=== PATIENT | female | born 1955 | race Caucasian/White ===

== ENCOUNTER 2023-01-14 00:28 | Observation (INO) ==
[2023-01-14] MEDS ORDERED: SODIUM CHLORIDE 0.9% 1000ML 1,000 ML IV ONE (00:30)
--- NOTE | 2023-01-14 00:47 | Emergency Department Note ---
History of Present Illness General Chief complaint: Hyperglycemia Stated complaint: HYPERGLYCEMIA Time Seen by Provider: 01/14/23 00:30 History of Present Illness 67-year-old female presents emergency department via EMS with reported high blood sugar. Patient states that her Accu-Chek read high today she did take 50 units of insulin and 50 units of insulin at 9 PM this evening. Patient denies vomiting states some nausea. Patient denies shortness of breath denies abdominal pain. Patient has no recent infections. Patient states general malaise. There are no other mitigating or alleviating factors Home Medications Medication Instructions Recorded Confirmed Type allopurinol 300 mg tablet 300 mg PO QAM 07/24/18 01/14/23 History fluticasone propionate 50 1 spray intranasal DAILY PRN 07/24/18 01/14/23 History mcg/actuation nasal Congestion spray,suspension (Flonase Allergy Relief) insulin human U-100 NPH-regulr See Rx Instructions .Route .COMPLEX 07/24/18 01/14/23 History 70-30 mix 100 unit/mL subcutaneous susp (Humulin 70/30 U-100 Insulin) levothyroxine 175 mcg tablet 175 mcg PO DAILYBB 07/24/18 01/14/23 History lorazepam 0.5 mg tablet 0.5 mg PO TID PRN Anxiety 07/24/18 01/14/23 History nystatin-triamcinolone 100,000 1 applic topical BID 07/24/18 01/14/23 History unit/g-0.1 % topical cream torsemide 100 mg tablet 100 mg PO 3XWK 07/24/18 01/14/23 History Keto Plus Bhb Salts 2 tab PO QAM 01/14/23 01/14/23 History ascorbic acid (vitamin C) 500 mg 500 mg PO QAM 01/14/23 01/14/23 History tablet clotrimazole 1 % topical cream 1 applic topical BID 01/14/23 01/14/23 History docusate sodium 100 mg capsule 100 mg PO BID 01/14/23 01/14/23 History dulaglutide 0.75 mg/0.5 mL 0.75 mg subcut WK 01/14/23 01/14/23 History subcutaneous pen injector (Trulicity) ferrous sulfate 325 mg (65 mg 325 mg PO AMHS 01/14/23 01/14/23 History iron) tablet hydrocodone 5 mg-acetaminophen 325 1 tab PO Q8 PRN Moderate Pain 01/14/23 01/14/23 History mg tablet (Scale Score 5-6) losartan 50 mg tablet 50 mg PO QAM 01/14/23 01/14/23 History pantoprazole 40 mg tablet,delayed 40 mg PO DAILYBB 01/14/23 01/14/23 History release pioglitazone 30 mg tablet 30 mg PO QAM 01/14/23 01/14/23 History simvastatin 80 mg tablet 80 mg PO QAM 01/14/23 01/14/23 History venlafaxine 150 mg 150 mg PO QAM 01/14/23 01/14/23 History capsule,extended release 24 hr Allergies Allergy/AdvReac Type Severity Reaction Status Date / Time adhesive AdvReac Mild BANDAIDS-IRRITATION Verified 01/14/23 01:14 SKIN lisinopril AdvReac Mild Cough Verified 01/14/23 01:14 metformin AdvReac caused Verified 01/14/23 01:20 multiple stomach polyps Past Med/Surg History Medical History (Updated 01/14/23 @ 04:43 by Mekhi Lyn DO) Anemia HX Anxiety Chronic obstructive pulmonary disease Depression Diabetes mellitus, type 2 GERD (gastroesophageal reflux disease) Gout Hiatal hernia Hyperlipidemia Hypertension Hypothyroidism On home oxygen therapy 3L/MIN CONT/WITH CPAP HS Osteoarthritis Seizure HX-FULL BODY SHAKING/DID NOT LOSE CONSCIOUSNESS 10+ YRS WAS ON MEDS-NO LONGER ON MEDS-HAS HAD NO SEIZURES PAST 10 YRS Sleep apnea CPAP SOB (shortness of breath) on exertion Surgical History History of back surgery X 2 History of carpal tunnel release R/L History of cataract surgery R/L History of cholecystectomy History of open reduction and internal fixation (ORIF) procedure LEFT WRIST History of tonsillectomy Family History Sister Family history of diabetes mellitus Brother Family history of diabetes mellitus Mother Family history of diabetes mellitus Father Family history of diabetes mellitus Grandmother Family history of diabetes mellitus Grandmother Family history of diabetes mellitus Grandfather Family history of diabetes mellitus Family/Other Family history of diabetes mellitus Family history of esophageal cancer Social History Smoking Status: Former smoker Second Hand Exposure: Yes (FAMILY); Hx Alcohol Use: No Hx Substance Use: No Preferred Language: Czech Communication Ability: Effective Formula Clerk Required: No Beliefs That Will Affect Care: None Current Living Situation: Family Feels Safe at Home: Yes Assistive Devices: CPAP, Denture - Upper, Denture - Lower, Glasses and Oxygen - Continuous Review of Systems A total of 10 systems reviewed and were otherwise negative Constitutional: no fever Gastrointestinal: + nausea Physical Exam Vital Signs Vital Signs - 24 hr 01/14/23 00:44 01/14/23 02:26 01/14/23 03:02 Temperature 36.6 C Temperature Source Oral Pulse Rate 99 H Pulse Rate [Finger] 94 H 92 H Respiratory Rate 22 20 16 Respiratory Depth Normal Blood Pressure 118/51 L Blood Pressure [Right Arm] 133/51 L 138/57 L Blood Pressure Mean 73 Blood Pressure Mean [Right Arm] 78 84 Pulse Oximetry 98 100 100 Oxygen Delivery Method Nasal Cannula Nasal Cannula Room Air Oxygen Flow Rate 2 2 Sepsis Recent Fever Within 48 Hours Yes Sepsis New/Unexplained Change in Mental Status No Sepsis Action Taken by Nursing No Action Required 01/14/23 02:03 01/14/23 03:00 01/14/23 03:30 Temperature Temperature Source Pulse Rate 100 H 95 H 94 H Pulse Rate [Finger] Respiratory Rate 20 18 Respiratory Depth Blood Pressure 138/57 L 150/57 H Blood Pressure [Right Arm] Blood Pressure Mean 84 88 Blood Pressure Mean [Right Arm] Pulse Oximetry 98 100 Oxygen Delivery Method Room Air Room Air Oxygen Flow Rate Sepsis Recent Fever Within 48 Hours Sepsis New/Unexplained Change in Mental Status Sepsis Action Taken by Nursing 01/14/23 04:00 Temperature Temperature Source Pulse Rate 91 H Pulse Rate [Finger] Respiratory Rate 23 Respiratory Depth Blood Pressure 114/46 L Blood Pressure [Right Arm] Blood Pressure Mean 68 Blood Pressure Mean [Right Arm] Pulse Oximetry 100 Oxygen Delivery Method Room Air Oxygen Flow Rate Sepsis Recent Fever Within 48 Hours Sepsis New/Unexplained Change in Mental Status Sepsis Action Taken by Nursing GENERAL: Patient is awake alert in no acute distress patient is resting comfortably and showing no signs of anxiety EYES: The conjunctivae are clear. The pupils are round and reactive. EARS, NOSE, MOUTH AND THROAT: The nose is without any evidence of any deformity. Mucous membranes are moist. Tongue is midline. NECK: The neck is nontender and supple. RESPIRATORY: Normal respiratory effort is noted there is no evidence of wheezing rhonchi or rales CARDIOVASCULAR: Regular rate and rhythm noted there no murmurs rubs or gallops normal S1 normal S2. GASTROINTESTINAL: The abdomen is soft. Abdomen is nontender. PELVIS: The Pelvis is stable. No tenderness to palpation is noted. BACK: No midline tenderness or or step-off noted range of motion in flexion extension as well as rotation no signs of muscle spasm noted MUSCULOSKELETAL/EXTREMITIES: There is no evidence of gross deformity full range of motion is noted in the hips and shoulders. SKIN: There is no obvious evidence of any rash. There are no petechiae, pallor or cyanosis noted. NEUROLOGIC: Patient is awake alert and oriented x3 strength is symmetric patellar reflexes are 2+ bilaterally Course Reevaluation(s) Reevaluation #1: Patient was started on IV fluids, IV antibiotics. Patient is not in septic shock at the time of admission Time: 04:42 Consultations Consultation #1: Case was discussed with the hospitalist for admission from [facility] Time: 04:42 Administered Medications Discontinued Medications Sodium Chloride (Nss 1000ml) 1,000 mls @ 999 mls/hr IV .Q1H1M ONE Stop: 01/14/23 01:30 Last Infusion: 01/14/23 01:51 Dose: 0 mls/hr Documented By: Admin: 01/14/23 00:41 Dose: 999 mls/hr Documented By: Ceftriaxone Sodium (Rocephin) 2,000 mg in 70 mls @ 140 mls/hr IV NOW STA Stop: 01/14/23 03:00 Last Infusion: 01/14/23 03:21 Dose: 0 mls/hr Documented By: Admin: 01/14/23 02:48 Dose: 140 mls/hr Documented By: Ondansetron HCl (Ondansetron Inj 2 Mg/Ml 2 Ml Vial) 4 mg IV NOW STA Stop: 01/14/23 00:49 Last Admin: 01/14/23 00:54 Dose: 4 mg Documented By: Medical Decision Making Medical Records Attestation: I reviewed the patient's medical records. Home Medications Current Medication List: was personally reviewed by me Laboratory Data Attestation: I reviewed the patient's lab results. Patient has a leukocytosis, positive urine for infection 01/14/23 00:49 01/14/23 00:49 Lab Results 01/14/23 01/14/23 01/14/23 Range/Units 00:34 00:49 00:49 WBC 13.85 H (4.8-10.8) K/ul RBC 3.31 L (4.20-5.40) M/uL Hgb 9.8 L (12.0-16.0) g/dl Hct 31.7 L (37.0-47.0) % MCV 95.8 (80.0-100.0) fL MCH 29.6 (25.0-34.0) pg MCHC 30.9 L (32.0-36.0) g/dL RDW Std Deviation 50.3 H (36.4-46.3) fL RDW Coeff of [place] 14.4 (11.5-14.5) % Plt Count 227 (130-400) K/uL MPV 11.1 (9.4-12.4) fL Immature Gran % (Auto) 1.1 % Neut % (Auto) 80.1 % Lymph % (Auto) 13.6 % [place] % (Auto) 4.8 % Eos % (Auto) 0.1 % Baso % (Auto) 0.3 % Neut # (Auto) 11.10 H (1.40-6.50) K/uL Lymph # (Auto) 1.88 (1.2-3.4) K/uL [place] # (Auto) 0.67 H (0.11-0.59) K/uL Eos # (Auto) 0.01 (0-0.50) K/uL Baso # (Auto) 0.04 (0-0.2) K/uL Immature Gran # (Auto) 0.15 (0.01-0.20) K/uL Sodium 134 L (136-145) mmol/L Potassium 4.7 (3.5-5.1) mmol/L Chloride 96 L (98-107) mmol/L Carbon Dioxide 32 (21-32) mmol/L Anion Gap 6 (3-11) BUN 68 H (6-23) mg/dl Creatinine 1.25 H (0.6-1.2) mg/dl Est Cr Clr Drug Dosing 54.0 ml/min Est GFR ( Amer) 50.8 ml/min Est GFR (Non-Af Amer) 43.9 ml/min BUN/Creatinine Ratio 54.4 H (10-20) Glucose 307 H* (70-99(Fasting)) mg/dl POC Glucose 318 H* (70-99) mg/dl Lactate (0.4-2.0) mmol/L Calcium 8.9 (8.6-10.3) mg/dl Magnesium 1.6 L (1.7-2.4) mg/dl Total Bilirubin 0.2 (0.2-1.0) mg/dl AST 13 (13-39) U/L ALT 6 L (7-52) U/L Alkaline Phosphatase 106 H (34-104) U/L Total Protein 6.2 (6.0-8.3) gm/dl Albumin 3.4 (3.4-5.0) gm/dl Globulin 2.8 (2.5-4.0) gm/dl Albumin/Globulin Ratio 1.2 (0.9-2) Urine Color Urine Appearance (Clear) Urine pH (4.5-7.5) Ur Specific [place] (1.000-1.030) Urine Protein (Negative) Urine Glucose (UA) (Negative) Urine Ketones (Negative) Urine Blood (Negative) Urine Nitrite (Negative) Urine Bilirubin (Negative) Urine Urobilinogen (Negative) Ur Leukocyte Esterase (Negative) Urine WBC (Auto) (0-5) /hpf Urine RBC (Auto) (0-4) /hpf U Hyaline Cast (Auto) (0-5) /lpf U Epithel Cells (Auto) (0-5) /lpf Urine Bacteria (Auto) (Negative) SARS-CoV-2, RNA, NAAT (NEGATIVE) 01/14/23 01/14/23 01/14/23 Range/Units 00:49 01:30 02:37 WBC (4.8-10.8) K/ul RBC (4.20-5.40) M/uL Hgb (12.0-16.0) g/dl Hct (37.0-47.0) % MCV (80.0-100.0) fL MCH (25.0-34.0) pg MCHC (32.0-36.0) g/dL RDW Std Deviation (36.4-46.3) fL RDW Coeff of [place] (11.5-14.5) % Plt Count (130-400) K/uL MPV (9.4-12.4) fL Immature Gran % (Auto) % Neut % (Auto) % Lymph % (Auto) % [place] % (Auto) % Eos % (Auto) % Baso % (Auto) % Neut # (Auto) (1.40-6.50) K/uL Lymph # (Auto) (1.2-3.4) K/uL [place] # (Auto) (0.11-0.59) K/uL Eos # (Auto) (0-0.50) K/uL Baso # (Auto) (0-0.2) K/uL Immature Gran # (Auto) (0.01-0.20) K/uL Sodium (136-145) mmol/L Potassium (3.5-5.1) mmol/L Chloride (98-107) mmol/L Carbon Dioxide (21-32) mmol/L Anion Gap (3-11) BUN (6-23) mg/dl Creatinine (0.6-1.2) mg/dl Est Cr Clr Drug Dosing ml/min Est GFR ( Amer) ml/min Est GFR (Non-Af Amer) ml/min BUN/Creatinine Ratio (10-20) Glucose (70-99(Fasting)) mg/dl POC Glucose (70-99) mg/dl Lactate 1.7 (0.4-2.0) mmol/L Calcium (8.6-10.3) mg/dl Magnesium (1.7-2.4) mg/dl Total Bilirubin (0.2-1.0) mg/dl AST (13-39) U/L ALT (7-52) U/L Alkaline Phosphatase (34-104) U/L Total Protein (6.0-8.3) gm/dl Albumin (3.4-5.0) gm/dl Globulin (2.5-4.0) gm/dl Albumin/Globulin Ratio (0.9-2) Urine Color Yellow Urine Appearance Clear (Clear) Urine pH 5.5 (4.5-7.5) Ur Specific [place] 1.018 (1.000-1.030) Urine Protein Negative (Negative) Urine Glucose (UA) 2+ H (Negative) Urine Ketones Negative (Negative) Urine Blood Negative (Negative) Urine Nitrite Negative (Negative) Urine Bilirubin Negative (Negative) Urine Urobilinogen Negative (Negative) Ur Leukocyte Esterase 2+ H (Negative) Urine WBC (Auto) 10-30 H (0-5) /hpf Urine RBC (Auto) 0-4 (0-4) /hpf U Hyaline Cast (Auto) 1-5 (0-5) /lpf U Epithel Cells (Auto) >30 H (0-5) /lpf Urine Bacteria (Auto) Negative (Negative) SARS-CoV-2, RNA, NAAT NEGATIVE (NEGATIVE) Imaging Data Attestation: I personally reviewed and interpreted this imaging study as follows: ECG Data Attestation: I personally reviewed and interpreted this ECG as follows: Additional Comments: EKG interpreted by me sinus tachycardia rate of 104 poor baseline in the inferolateral leads no obvious global ST segment elevation or depression normal axis Telemetry was ordered by me, interpreted as sinus tachycardia rate of 102 MDM Narrative Medical decision making differential diagnosis includes hyperglycemia, diabetic ketoacidosis, urinary tract infection, electrolyte abnormality, dehydration Plan is to check labs, EKG, give IV fluids EMS medical report was reviewed by me at bedside External medical records were reviewed by me Patient was started on IV fluids with a 3000 mL bolus, was given IV Rocephin, the patient is not in septic shock, patient will be admitted for SIRS, urinary tract infection dehydration and hyperglycemia Impression & Plan Acute hyperglycemia, Acute UTI (urinary tract infection), Acute dehydration, Sepsis Discharge Plan Visit Data Chief Complaint: Hyperglycemia Stated Complaint: HYPERGLYCEMIA ED Provider: Mekhi Lyn Discharge Problem: Acute hyperglycemia, Acute UTI (urinary tract infection), Acute dehydration, Sepsis Patient Disposition: Admitted As Inpatient Forms Stand Alone Forms: [facility] Prescriptions Prescriptions: No Action levothyroxine 175 mcg Tablet 175 mcg PO DAILYBB lorazepam 0.5 mg Tablet 0.5 mg PO TID PRN (Reason: Anxiety) Rx Instructions: pt normally take 1 in the morning and hs allopurinol 300 mg Tablet 300 mg PO QAM fluticasone propionate [Flonase Allergy Relief] 50 mcg/actuation [place],Suspension 1 spray INTRANASAL DAILY PRN (Reason: Congestion) torsemide 100 mg Tablet 100 mg PO 3XWK Rx Instructions: FRIDAY/FRIDAY/FRIDAY AM nystatin-triamcinolone 100,000-0.1 unit/g-% Cream 1 applic TOPICAL BID Rx Instructions: apply to both lower extremities Humulin 70/30 U-100 Insulin 100 unit/mL (70-30) Suspension See Rx Instructions .ROUTE .COMPLEX Rx Instructions: inject 45-50 units under skin in the morning and 42-50 units in the evening as directed. ferrous sulfate 325 mg (65 mg iron) tablet 325 mg PO AMHS docusate sodium 100 mg Capsule 100 mg PO BID hydrocodone-acetaminophen 5-325 mg tablet 1 tab PO Q8 PRN (Reason: Moderate Pain (Scale Score 5-6)) Rx Instructions: pt usually take 1 in the morning and hs losartan 50 mg tablet 50 mg PO QAM clotrimazole 1 % cream 1 applic TOPICAL BID Rx Instructions: apply to abdominal folds,creases of legs and [place] area pantoprazole 40 mg tablet,delayed release (DR/EC) 40 mg PO DAILYBB simvastatin 80 mg tablet 80 mg PO QAM pioglitazone 30 mg tablet 30 mg PO QAM venlafaxine 150 mg capsule,extended release 24hr 150 mg PO QAM ascorbic acid (vitamin C) 500 mg tablet 500 mg PO QAM Trulicity 0.75 mg/0.5 mL pen injector 0.75 mg SUBCUT WK Rx Instructions: inject on SUNDAYS Keto Plus Bhb Salts 2 tab PO QAM Referrals Referrals: Gurjit Hogan DO [Primary Care Provider] -
[2023-01-14] MEDS ORDERED: ONDANSETRON INJ 2 MG/ML 2 ML VIAL IV STA (00:48)
[2023-01-14 01:10] LABS: Basophils # (auto) 0.04 K/uL (0-0.2); Basophils % (auto) 0.3 %; Eosinophils # (auto) 0.01 K/uL (0-0.50); Eosinophils % (auto) 0.1 %; Hematocrit (blood only) 31.7 % (37.0-47.0); Hemoglobin 9.8 g/dl (12.0-16.0); Immature Granulocytes # (auto) 0.15 K/uL (0.01-0.20); Immature Granulocytes % (auto) 1.1 %; Lymphocytes # (auto) 1.88 K/uL (1.2-3.4); Lymphocytes % (auto) 13.6 %; Mean Corpuscular Hemoglobin 29.6 pg (25.0-34.0); Mean Corpuscular Hgb Conc 30.9 g/dL (32.0-36.0); Mean Corpuscular Volume 95.8 fL (80.0-100.0); Mean Platelet Volume 11.1 fL (9.4-12.4); Monocytes # (auto) 0.67 K/uL (0.11-0.59); Monocytes % (auto) 4.8 %; Neutrophils % (auto) 80.1 %; Platelet Count 227 K/uL (130-400); RDW Coefficient of Variation 14.4 % (11.5-14.5); RDW Standard Deviation 50.3 fL (36.4-46.3); Red Blood Count 3.31 M/uL (4.20-5.40); White Blood Count 13.85 K/ul (4.8-10.8)
[2023-01-14 01:38] LABS: Albumin Globulin Ratio 1.2 (0.9-2); Albumin Level 3.4 gm/dl (3.4-5.0); BUN Creatinine Ratio 54.4 (10-20); Bilirubin,Total 0.2 mg/dl (0.2-1.0); Calcium 8.9 mg/dl (8.6-10.3); Est GFR (African American) 50.8 ml/min; Est GFR (Non-African American) 43.9 ml/min; Globulin 2.8 gm/dl (2.5-4.0); Magnesium 1.6 mg/dl (1.7-2.4); Potassium 4.7 mmol/L (3.5-5.1); Total Protein 6.2 gm/dl (6.0-8.3)
[2023-01-14 02:23] LABS: Appearance Urine Clear (Clear); Bacteria Urine Automated Negative (Negative); Bilirubin Urine Negative (Negative); Blood Urine Negative (Negative); Color Urine Yellow; Epithelial Cell Urine Auto >30 /lpf (0-5); Glucose Urine UA 2+ (Negative); Ketones Urine Negative (Negative); Leukocyte Esterase Urine 2+ (Negative); Nitrite Urine Negative (Negative); Protein Urine Negative (Negative); RBC Urine Automated 0-4 /hpf (0-4); Specific Gravity Urine 1.018 (1.000-1.030); Urobilinogen Urine Negative (Negative); pH Urine 5.5 (4.5-7.5)
[2023-01-14] MEDS ORDERED: cefTRIAXone SODIUM 2,000 MG/70 ML BAG IV STA (02:31)
[2023-01-14] MEDS ORDERED: SODIUM CHLORIDE 0.9% 1000ML 2,000 ML IV ONE (04:40)
[2023-01-14] MEDS ORDERED: POLYETHYLENE (MIRALAX) 17 GM PACK PO PRN (08:36)
[2023-01-14] MEDS ORDERED: NITROGLYCERIN SL 0.4 MG/TAB TAB SL PRN (08:36)
[2023-01-14] MEDS ORDERED: DEXTROSE 50% 50 ML SYRINGE IV PRN (08:36)
[2023-01-14] MEDS ORDERED: ACETAMINOPHEN 325 MG TAB PO PRN (08:36)
[2023-01-14] MEDS ORDERED: GLUCOSE 40% GEL 15 GM TUBE PO PRN (08:36)
[2023-01-14] MEDS ORDERED: GLUCAGON FOR INJ 1 MG VIAL SQ PRN (08:36)
[2023-01-14] MEDS ORDERED: CARBOHYDRATES FOR HYPOGLYCEMIA PO PRN (08:36)
[2023-01-14] MEDS ORDERED: PHARMACY GLYCEMIC MGMT CONSULT PRN (08:36)
[2023-01-14] MEDS ORDERED: GLUCOSE 10 TAB/TUBE PO PRN (08:36)
[2023-01-14] MEDS ORDERED: FLUTICASONE PROPIONATE NA SPR 16 GM BTL PRN (08:36)
[2023-01-14] MEDS: MAGNESIUM SULFATE / D5W 1 GM/100 ML BAG IV SCH ×2 (08:46→10:27)
[2023-01-14] MEDS ORDERED: INSULIN HUMAN NPH SC SCH (09:00)
--- NOTE | 2023-01-14 09:03 | XRay Report ---
XR chest 1V portable HISTORY: 67 years-old Female cough acute cough COMPARISON: 09/05/2012 TECHNIQUE: AP view of the chest FINDINGS: Cardiac silhouette is enlarged. Hiatal hernia. No pneumothorax, pleural effusion, airspace consolidat ion or pulmonary edema. Bones appear grossly intact. IMPRESSION: 1. Cardiomegaly without acute process. 2. Hiatal hernia. ACT 112: Negative or not required by law. The above report was generated using voice recognition software. It may contain grammatical, syntax o r spelling errors. Electronically signed by: Faisal Salguero M.D. 01/14/2023 8:30 AM
--- NOTE | 2023-01-14 09:19 | History and Physical Report ---
DATE OF ADMISSION: 01/14/2023. CHIEF COMPLAINT: Hyperglycemia and UTI. HISTORY OF PRESENT ILLNESS: This 67-year-old female with past medical history significant for hyperlipidemia, type 2 diabetes, chronic hypoxemic respiratory failure on oxygen, sleep apnea on CPAP at bedtime, but currently using oxygen as her new CPAP machine has not come yet, hypothyroidism, allergic rhinitis, GERD, morbid obesity, chronic kidney disease stage III, osteoarthritis, history of convulsion, history of chronic pain syndrome, anxiety state, depression, presents with hyperglycemia. The patient lives alone, but currently one of the daughter is living with her and another daughter lives next door, ambulates with a cane. Yesterday sugars were reading high. She is on Humulin 70/30, she took 50 in the morning and 50 in the night, but still her sugars are running high in 300s that is the reason she came in .She also has some headache, some nausea, which are resolved now. In the ER, she also found to have UTI. She has chronic lower extremity edema. Denies any chest pain, no shortness of breath. Has some dry cough and some runny nose. Denies any headache. No earaches, no fevers, no abdominal pain. Normal bowel and bladder movements. Currently, resting comfortably and hemodynamically stable. ALLERGIES: ADHESIVE, LISINOPRIL, METFORMIN. PAST MEDICAL HISTORY: As mentioned above. PAST SURGICAL HISTORY: Carpal tunnel surgery bilaterally, EGDs, lumbar surgery x2 left wrist, plate and screws for fracture, cataract surgery, cholecystectomy, tonsillectomy, adenoidectomy, repair of incisional hernia, right vitrectomy. MEDICATIONS: The patient is on allopurinol 300 mg p.o. a.m., vitamin C 500 mg p.o. b.i.d., clotrimazole 1 application topical b.i.d., Colace 100 mg p.o. b.i.d., Trulicity 0.75 mg subcutaneous weekly, ferrous sulfate 325 mg p.o. b.i.d., Flonase 1 spray intranasal daily p.r.n., hydrocodone/acetaminophen 1 tablet p.o. q. 8 hours p.r.n., Humulin 70/30, 45-50 units b.i.d., levothyroxine 175 mcg p.o. daily, lorazepam 0.5 mg p.o. t.i.d. p.r.n., losartan 50 mg p.o. daily, nystatin-triamcinolone 1 application topical b.i.d., Protonix 40 mg p.o. daily, pioglitazone 30 mg p.o. daily, simvastatin 80 mg p.o. p.m., torsemide 100 mg p.o. 3 times daily, venlafaxine 150 mg p.o. a.m. FAMILY HISTORY: Significant for father has diabetes, heart attacks, hypertension; mother has diabetes, heart disorder, hypertension. SOCIAL HISTORY: Lives alone. Daughter lives next door. No smoking, no alcohol, no drug use. REVIEW OF SYSTEMS: As per HPI. Rest of review of systems is negative. PHYSICAL EXAMINATION: GENERAL: The patient is morbidly obese, not in acute distress. VITAL SIGNS: Temperature 36.6, pulse 95, respiration 22, blood [id number], oxygen 100% on room air. HEENT: Pupils equal, round and reactive to light. Oral mucosa dry. NECK: No JVD. No neck masses. CARDIOVASCULAR: S1 and S2 heard. Regular rate and rhythm. No murmur, no gallop. RESPIRATORY SYSTEM: Normal AP diameter. No accessory muscle use. No wheezing or crackles. ABDOMEN: Soft, bowel sounds present, nontender, no distention. CENTRAL NERVOUS SYSTEM: Cranial nerves II-XII grossly intact, nonfocal. EXTREMITIES: Bilateral lower extremity edema present, no erythema seen. LABORATORY DATA: WBC 13.8, hemoglobin 9.8, hematocrit 31.7, platelets 277. Sodium 134, potassium 4.7, chloride 96, bicarbonate 32, BUN 68, creatinine 1.25, serum glucose 307. Lactate 1.7, calcium 8.9, magnesium 1.6, total bilirubin 0.2, AST 13, ALT 6, alkaline phosphatase 106. Urinalysis, +2 leukocyte esterase, bacteria negative. SARS-CoV-2 rapid test negative. IMAGING DATA: Chest x-ray, no acute findings. EKG: Sinus tachycardia at a rate of 104, no significant change was found. ASSESSMENT AND PLAN: This is a 67-year-old female who presents with hypoglycemia and urinary tract infection. 1. Hyperglycemia. She is on pioglitazone and Novolin 70/30, 45-50 units b.i.d. and Trulicity weekly. We will hold p.o. medication. We will place on Novolin N 70/30, 50 b.i.d. insulin sliding scale. Glycemic pharmacy consult. Follow HbA1c levels, follow the blood sugars closely. Daughter states sometimes the blood sugar in the middle of the nights very low.Seems she has brittle diabetes. We will closely monitor. 2. Urinary tract infection, started on Rocephin. We will follow the cultures. 3. Chronic kidney disease stage III, current creatinine of 1.25. We will follow the labs. 4. Sleep apnea: CPAP at bedtime. 5. Anemia. Hemoglobin 9.8, baseline hemoglobin was 11.8 past year. We will check stool for Hemoccult, iron studies, vitamin B12, folate levels. 6. Gastroesophageal reflux disease. Continue Protonix. 7. Hypertension. Continue losartan and diuretics. 8.Lower extremity edema, on torsemide.Will get echo. 9 Hyperlipidemia. On statin. 10. Hypothyroidism. On Synthroid. 11. Depression. On venlafaxine. 12. Deep venous thrombosis prophylaxis. Placed on Lovenox. DISPOSITION: Admit to tele. PT/OT prior to discharge. Social service to help with discharge planning. Level 1 full code. Job ID: [id number] [facility]
[2023-01-14] MEDS ORDERED: LANTUS PER UNIT CHARGE SC ONE (09:30)
[2023-01-14] MEDS: ENOXAPARIN INJ 40 MG/0.4 ML SYR SQ SCH ×2 (09:56→20:48)
[2023-01-14] MEDS: CLOTRIMAZOLE 1% CR 15 GM TUBE TOP SCH ×2 (09:57→21:24)
[2023-01-14] MEDS: allopurinoL 300 MG TAB PO SCH (09:57)
[2023-01-14] MEDS: NYSTATIN/TRIAMCIN CR 15 GM TUBE EXT SCH ×2 (09:57→21:24)
[2023-01-14] MEDS: LOSARTAN POTASSIUM 50 MG TAB PO SCH (09:57)
[2023-01-14] MEDS: SIMVASTATIN 80 MG TAB PO SCH (09:58)
[2023-01-14] MEDS: FERROUS SULFATE 325 MG TAB PO SCH ×2 (09:58→20:49)
[2023-01-14] MEDS: ASCORBIC ACID 500 MG TAB PO SCH (09:58)
[2023-01-14] MEDS: VENLAFAXINE HCL XR 150 MG CAPXR PO SCH (09:58)
[2023-01-14] MEDS: INSULIN ASPART PER UNIT CHARGE SC SCH ×4 (10:07→20:43)
--- NOTE | 2023-01-14 10:53 | Electrocardiogram Report ---
Test Reason : Blood Pressure : / mmHG Vent. Rate : 104 BPM Atrial Rate : 104 BPM P-R Int : 160 ms QRS Dur : 064 ms QT Int : 328 ms P-R-T Axes : 092 011 071 degrees QTc Int : 431 ms Poor data quality, interpretation may be adversely affected Sinus tachycardia Poor R wave progression, consider anterior UT vs. lead placement vs. LVH Abnormal ECG When compared with ECG of 21-MAR-2008 02:12, No significant change was found Confirmed by Jigar Cross ([id number]) on 01/14/2023 10:53:05 AM Referred By: REFERRED SELF Confirmed By:Rob Cross
[2023-01-14] MEDS ORDERED: INSULIN ASPART PER UNIT CHARGE SC SCH (11:30)
[2023-01-14] MEDS: DOCUSATE SODIUM 100 MG CAP PO SCH ×2 (12:05→20:49)
--- NOTE | 2023-01-14 13:59 | Pharmacy Report ---
Pharmacy Glycemic Short Note 2 - Date of Service January 14, 2023 - Glycemic Short BSG Results (Last 24 hours): 01/14/23 01/14/23 01/14/23 00:34 00:49 05:22 Glucose 307 H* POC Glucose 318 H* 193 H 01/14/23 01/14/23 09:55 11:53 Glucose POC Glucose 151 H 202 H OUTPATIENT ANTIDIABETIC REGIMEN: * Humulin 70/30: 45-50 units QAM, 42-50 units HS * Pioglitazone 30mg PO QAM * Trulicity 0.75mg SQ weekly ASSESSMENT: * 67 year old female who presented to [facility] ED with concerns of hyperglycemia at home (unresolved with home insulin regimen) and nausea. * BSG 318 mg/dL upon admission. Values have improved since presentation; Fasting today 151 mg/dL, lunchtime BSG 202 mg/dL. * A1c 7.1% in June 2022. Repeat value pending for tomorrow AM with labs. * Estimated total outpatient daily insulin needs = ~100 units. PLAN FOR INPATIENT GLYCEMIC CONTROL: * Hold outpatient oral diabetes medications * Basal insulin * Lantus 25 units SQ AM * Bolus insulin * NovoLog per scale ACHS or Q6hrs while NPO * Goal Range: Low 110 mg/dL - High 140 mg/dL * Correction Factor: 15 mg/dL/unit * Nutritional / Prandial insulin per carb ratio of 1 unit per 5 grams CHO consumed
--- NOTE | 2023-01-14 15:14 | Communication Note ---
Date of Service: January 14, 2023 Patient seen and examined Reports feeling better at this time Reports occasional dry cough which is not new. Denied frequency, urgency. When asked about dysuria, she stated "she may have had some pain with urination the day before" Continue insulin per protocol Pharm on board for insulin management Check A1c Follow up urine cultures. Continue ceftriaxone Monitor electrolytes Other plans as detailed in H&P this morning
[2023-01-14] MEDS: HYDROCODONE/ACETAMOPHEN 5/325MG TAB PO PRN (17:35)
[2023-01-14] MEDS: LORazepam 0.5 MG TAB PO PRN (20:48)
[2023-01-14] MEDS ORDERED: LANTUS PER UNIT CHARGE SC SCH (21:00)
[2023-01-15] MEDS: HYDROCODONE/ACETAMOPHEN 5/325MG TAB PO PRN ×3 (01:40→18:52)
[2023-01-15] MEDS: cefTRIAXone SODIUM 2,000 MG in DEXTROSE 5% 50 ML IV SCH (02:05)
[2023-01-15] MEDS: LEVOTHYROXINE SODIUM 175 MCG TABLET PO SCH (05:39)
[2023-01-15] MEDS: PANTOprazole 40 MG TAB PO SCH ×2 (05:39→05:51)
[2023-01-15 06:40] LABS: Basophils # (auto) 0.04 K/uL (0-0.2); Basophils % (auto) 0.4 %; Eosinophils # (auto) 0.13 K/uL (0-0.50); Eosinophils % (auto) 1.3 %; Hemoglobin 7.3 g/dl (12.0-16.0); Immature Granulocytes # (auto) 0.13 K/uL (0.01-0.20); Immature Granulocytes % (auto) 1.3 %; Lymphocytes # (auto) 1.82 K/uL (1.2-3.4); Lymphocytes % (auto) 17.5 %; Mean Corpuscular Hemoglobin 29.4 pg (25.0-34.0); Mean Corpuscular Hgb Conc 30.4 g/dL (32.0-36.0); Mean Corpuscular Volume 96.8 fL (80.0-100.0); Mean Platelet Volume 11.2 fL (9.4-12.4); Monocytes # (auto) 0.58 K/uL (0.11-0.59); Monocytes % (auto) 5.6 %; Neutrophils # (auto) 7.69 K/uL (1.40-6.50); Neutrophils % (auto) 73.9 %; Platelet Count 171 K/uL (130-400); RDW Standard Deviation 52.8 fL (36.4-46.3); Red Blood Count 2.48 M/uL (4.20-5.40); White Blood Count 10.39 K/ul (4.8-10.8)
[2023-01-15 07:11] LABS: BUN Creatinine Ratio 27.2 (10-20); Calcium 8.3 mg/dl (8.6-10.3); Creatinine Clr Calc Pharmacy 50.2 ml/min; Est GFR (African American) 45.9 ml/min; Est GFR (Non-African American) 39.6 ml/min; Magnesium 2.1 mg/dl (1.7-2.4); Potassium 5.2 mmol/L (3.5-5.1)
[2023-01-15 07:13] LABS: Estimated Average Glucose 171 mg/dl; Hemoglobin A1C 7.6 % (4.5-5.6)
[2023-01-15 07:22] LABS: RBC Morphology Unremarkable
--- NOTE | 2023-01-15 08:45 | Hospitalist Progress Note ---
Date of Service January 15, 2023 Assessment & Plan (1) Acute hyperglycemia: Plan: compliant with insulin at home. UTI possibly contributing. Now at inpatient goal with glycemic pharmacy help. A1C reflects poor overall control. Glucosuria likely contributing to frequent yeast infections. (2) Acute UTI (urinary tract infection): Plan: Rocephin pending culture results and clincal improvement. (3) Diabetes mellitus, type 2: Plan: A1C is 7.6. She reports starting Trulicity a few months ago and has lost 20 lbs and doing better with DMII management. She also continues on insulin. (4) Anemia: Plan: chronic, appears worse today from yesterday. On iron with known h/o anemia. Will review outpatient records regarding workup for this. Iron studies and B12/ folate ordered. No obvious acute blood loss. May be a dilutional component. (5) Yeast infection: Plan: Diflucan ordered (6) Chronic obstructive pulmonary disease: Plan: chornic, stable. Cont current management. (7) Anxiety: Plan: chronic, stable. Lorazepam PRN per home regimen. (8) Hypothyroidism: Plan: chronic, stable. Cont levothyroxine per home regimen. (9) On home oxygen therapy: Plan: chronic needs, underlying NICCI. CPAP ewas recalled so noncompliant at home without the equipment. She will call supply [employer] and check on this. (10) Sleep apnea: Plan: awaiting new CPAP to be delivered at home. Currently on home oxygen. (11) Obesity: Plan: Praised for loss of 20 lbs and continue lifestyle modifications. Lovenox Full Code Dispo-to home pending PT/OT recommendations. Amara Gautam DO [facility] Hospitalist Admission and Anticipated Discharge Date Admission Date: January 14, 2023 Subjective 67 yo obese diabetic female presented with hyperglycemia reports frequent yeast infections had dysuria and hematuria prior to arrival, now improved with abx for UTI treatment. She is tolerating PO, afebrile Denies any blood per rectum or other bleeding Takes iron for anemia typically Lots of left shoulder pain 2/2 "cold shoulder" and takes hydroxcodone Recent ankle pin surgery and reports some soreness in the left ankle Moving around well Review of Systems Review of Systems: All systems were reviewed and negative except as indicated on subjective abov.e Physical Exam Constitutional: CONSTITUTIONAL: obese, vitals as above, generally well-appearing, NAD EYES: normal conjunctivae, no scleral icterus, ENT: external ear and nose normal, MMM NECK: trachea midline RESPIRATORY: clear to auscultation bilaterally, no crackles, rales or wheezes, normal respiratory effort CARDIOVASCULAR: regular rate and rhythm, S1 and 2 heard without murmurs, gallops or rubs, no JVD, no peripheral edema CHEST: inspection of chest was normal GASTROINTESTINAL: , soft, nontender, ND, obese, no guarding MUSCULOSKELETAL: strength 5/5 throughout, head is normocephalic and atraumatic SKIN: warm and dry NEUROLOGIC: CN 2-12 grossly intact, no sensory deficit, normal cognition, normal speech, no tremor PSYCHIATRIC: alert cooperative and oriented to person, place and time. Euthymic mood, makes good eye contact, language grossly intact, recent and remote memory grossly intact. Results & Data Results & Data Vital Signs (Past 12 Hours) Vital Signs Temp Pulse Pulse Resp BP Pulse Ox O2 Del Method 01/15/23 07:26 85 01/15/23 07:00 36.7 C 78 18 114/39 L 100 Nasal Cannula 01/15/23 03:00 36.7 C 81 18 131/67 100 Nasal Cannula 01/14/23 23:24 87 01/14/23 22:00 36.8 C 89 18 150/70 H 100 Nasal Cannula O2 Flow Rate 01/15/23 07:26 01/15/23 07:00 2 01/15/23 03:00 2 01/14/23 23:24 01/14/23 22:00 2 Laboratory Results Short CBC 01/15/23 Range/Units 05:40 WBC 10.39 (4.8-10.8) K/ul Hgb 7.3 L (12.0-16.0) g/dl Hct 24.0 L (37.0-47.0) % Plt Count 171 (130-400) K/uL BMP 01/15/23 05:40 Sodium 139 Potassium 5.2 H Chloride 105 Carbon Dioxide 31 BUN 37 H D Creatinine 1.36 H Glucose 152 H Calcium 8.3 L Medications Administered Current Inpatient Medications Acetaminophen (Acetaminophen 325 Mg Tab) 650 mg PO Q4H PRN PRN Reason: Pain or Fever Stop: 02/13/23 08:35 Last Admin: 01/14/23 20:48 Dose: 650 mg Hydrocodone Bitart/Acetaminophen (Hydrocodone/Acetamophen 5/325mg Tab) 1 tab PO Q8 PRN PRN Reason: Moderate Pain (Scale Score 5-6) Stop: 01/28/23 08:35 Last Admin: 01/15/23 01:40 Dose: 1 tab Allopurinol (Allopurinol 300 Mg Tab) 300 mg PO QAM [facility] Stop: 02/13/23 08:59 Last Admin: 01/14/23 09:57 Dose: 300 mg Ascorbic Acid (Ascorbic Acid 500 Mg Tab) 500 mg PO QAM [facility] Stop: 02/13/23 08:59 Last Admin: 01/14/23 09:58 Dose: 500 mg Clotrimazole (Clotrimazole 1% Cr 15 Gm Tube) 1 appln TOP BID [facility] Stop: 02/13/23 08:59 Last Admin: 01/14/23 21:24 Dose: 1 appln Dextrose (Dextrose 50% 50 Ml Syringe) 25 - 50 ml IV UD PRN; Protocol PRN Reason: Hypoglycemia Protocol Stop: 02/13/23 08:35 Docusate Sodium (Docusate Sodium 100 Mg Cap) 100 mg PO BID [facility] Stop: 02/13/23 08:59 Last Admin: 01/14/23 20:49 Dose: 100 mg Enoxaparin Sodium (Enoxaparin Inj 40 Mg/0.4 Ml Syr) 40 mg SQ Q12H [facility] Stop: 02/13/23 08:35 Last Admin: 01/14/23 20:48 Dose: 40 mg Ferrous Sulfate (Ferrous Sulfate 325 Mg Tab) 325 mg PO AMHS [facility] Stop: 02/13/23 08:59 Last Admin: 01/14/23 20:49 Dose: 325 mg Fluticasone Propionate (Fluticasone Propionate Na Spr 16 Gm Btl) 1 sprays NA DAILY PRN PRN Reason: Congestion Stop: 02/13/23 08:35 Glucagon (Glucagon For Inj 1 Mg Vial) 1 mg SQ UD PRN; Protocol PRN Reason: Hypoglycemia Protocol Stop: 02/13/23 08:35 Glucose (Glucose 10 Tab/Tube) 4 - 8 tab PO UD PRN; Protocol PRN Reason: Hypoglycemia Treatment Stop: 02/13/23 08:35 Glucose (Glucose 40% Gel 15 Gm Tube) 15 - 30 gm PO UD PRN; Protocol PRN Reason: Hypoglycemia Protocol Stop: 02/13/23 08:35 Ceftriaxone Sodium 2,000 mg/ (Dextrose) 70 mls @ 100 mls/hr IV Q24H [facility]; Protocol Stop: 01/25/23 02:59 Last Infusion: 01/15/23 02:53 Dose: Infused Insulin Aspart (Insulin Aspart Per Unit Charge) 0 units SC ACHS [facility] Stop: 02/13/23 09:29 Last Admin: 01/14/23 20:43 Dose: Not Given Insulin Glargine (Lantus Per Unit Charge) 15 units SC BID [facility] Stop: 02/13/23 20:59 Levothyroxine Sodium (Levothyroxine Sodium 175 Mcg Tablet) 175 mcg PO DAILYBB [facility] Stop: 02/14/23 06:29 Last Admin: 01/15/23 05:39 Dose: 175 mcg Lorazepam (Lorazepam 0.5 Mg Tab) 0.5 mg PO TID PRN PRN Reason: Anxiety Stop: 02/13/23 08:35 Last Admin: 01/14/23 20:48 Dose: 0.5 mg Losartan Potassium (Losartan Potassium 50 Mg Tab) 50 mg PO QAM [facility] Stop: 02/13/23 08:59 Last Admin: 01/14/23 09:57 Dose: 50 mg Miscellaneous (Carbohydrates For Hypoglycemia ) 15 - 30 gm PO UD PRN PRN Reason: Hypoglycemia Protocol Stop: 02/13/23 08:35 Miscellaneous Information (Pharmacy Glycemic Mgmt Consult) 1 each N/A UD PRN PRN Reason: Consult Stop: 02/13/23 08:35 Nitroglycerin (Nitroglycerin Sl 0.4 Mg/Tab Tab) 0.4 mg SL UD PRN PRN Reason: Chest Pain Stop: 02/13/23 08:35 Nystatin/Triamcinolone Acetonide (Nystatin/Triamcin Cr 15 Gm Tube) 1 appln EXT BID [facility] Stop: 02/13/23 08:59 Last Admin: 01/14/23 21:24 Dose: 1 appln Ondansetron HCl (Ondansetron Inj 2 Mg/Ml 2 Ml Vial) 4 mg IV Q6H PRN PRN Reason: Nausea Stop: 02/13/23 08:35 Pantoprazole Sodium (Pantoprazole 40 Mg Tab) 40 mg PO 0700 [facility] Stop: 02/14/23 06:29 Last Admin: 01/15/23 05:51 Dose: Not Given Polyethylene Glycol (Polyethylene (Miralax) 17 Gm Pack) 17 gm PO DAILY PRN PRN Reason: Constipation Stop: 02/13/23 08:35 Simvastatin (Simvastatin 80 Mg Tab) [facility] [place] Stop: 02/13/23 08:59 Last Admin: 01/14/23 09:58 Dose: 80 mg Torsemide (Torsemide 100 Mg Tab) 100 mg PO MoWeFr@0900 [facility] Stop: 02/14/23 08:59 Venlafaxine HCl (Venlafaxine Hcl Xr 150 Mg Capxr) 150 mg PO [facility] Stop: 02/13/23 08:59 Last Admin: 01/14/23 09:58 Dose: 150 mg
[2023-01-15] MEDS ORDERED: TORSEMIDE 100 MG TAB PO SCH (09:00)
[2023-01-15] MEDS: INSULIN ASPART PER UNIT CHARGE SC SCH ×4 (09:03→20:59)
[2023-01-15] MEDS: allopurinoL 300 MG TAB PO SCH (09:04)
[2023-01-15] MEDS: ASCORBIC ACID 500 MG TAB PO SCH (09:04)
[2023-01-15] MEDS: LANTUS PER UNIT CHARGE SC SCH ×2 (09:05→20:59)
[2023-01-15] MEDS: CLOTRIMAZOLE 1% CR 15 GM TUBE TOP SCH ×2 (09:06→20:57)
[2023-01-15] MEDS: LOSARTAN POTASSIUM 50 MG TAB PO SCH (09:06)
[2023-01-15] MEDS: NYSTATIN/TRIAMCIN CR 15 GM TUBE EXT SCH ×2 (09:07→20:57)
[2023-01-15] MEDS: SIMVASTATIN 80 MG TAB PO SCH (09:07)
[2023-01-15] MEDS: VENLAFAXINE HCL XR 150 MG CAPXR PO SCH (09:07)
[2023-01-15] MEDS: ENOXAPARIN INJ 40 MG/0.4 ML SYR SQ SCH ×2 (10:29→21:10)
[2023-01-15] MEDS: DOCUSATE SODIUM 100 MG CAP PO SCH ×2 (10:30→20:59)
[2023-01-15] MEDS: FERROUS SULFATE 325 MG TAB PO SCH ×2 (11:38→20:59)
--- NOTE | 2023-01-15 14:24 | Pharmacy Report ---
Pharmacy Glycemic Short Note 2 - Date of Service January 15, 2023 - Glycemic Short BSG Results (Last 24 hours): 01/14/23 01/14/23 01/15/23 16:22 20:07 05:40 Glucose 152 H POC Glucose 120 H 85 01/15/23 01/15/23 07:38 11:25 Glucose POC Glucose 156 H 183 H OUTPATIENT ANTIDIABETIC REGIMEN: * Humulin 70/30: 45-50 units QAM, 42-50 units HS * Pioglitazone 30mg PO QAM * Trulicity 0.75mg SQ weekly ASSESSMENT: 01/15: * BSGs yesterday 318mg/dL on admission, and then [phone] mg/dL throughout the day. * Patient received 25 units of basal insulin and 25 units of bolus insulin. The patient refused the VANNESA HS 25 units dose of Lantus they had been ordered. * Today, fasting BSG 156 mg/dL. Optimal BSG may be better achieved if basal insulin dose is increased by ~20%. * NovoLog parameters were loosened this AM in response to low HS value night prior. Lunchtime BSG 183mg/dL today, carb ratio partially re-tightened. 01/14, Initial: * 67 year old female who presented to [facility] ED with concerns of hyperglycemia at home (unresolved with home insulin regimen) and nausea. * BSG 318 mg/dL upon admission. Values have improved since presentation; Fasting today 151 mg/dL, lunchtime BSG 202 mg/dL. * A1c 7.1% in June 2022. Repeat value pending for tomorrow AM with labs. * Estimated total outpatient daily insulin needs = ~100 units. PLAN FOR INPATIENT GLYCEMIC CONTROL: * Hold outpatient oral diabetes medications * Basal insulin * Lantus 15 units SQ BID * Bolus insulin * NovoLog per scale ACHS or Q6hrs while NPO * Goal Range: Low 110 mg/dL - High 140 mg/dL * Correction Factor: 20 mg/dL/unit * Nutritional / Prandial insulin per carb ratio of 1 unit per 6 grams CHO consumed
[2023-01-15] MEDS ORDERED: TROLAMINE SALICYLATE 10% CRM 255 APPLN/85 GM TUBE EXT PRN (15:27)
[2023-01-15] MEDS ORDERED: FLUCONAZOLE 50 MG TAB PO SCH ×2 (16:15)
[2023-01-15] MEDS: ONDANSETRON INJ 2 MG/ML 2 ML VIAL IV PRN (17:12)
[2023-01-15] MEDS: LORazepam 0.5 MG TAB PO PRN (20:56)
--- NOTE | 2023-01-15 21:09 | Communication Note ---
Date of Service: January 15, 2023 Notified by RN of positive FOBT result. Patient without abdominal pain complaints. Hold Lovenox subcu for now. Utilize SCDs for DVT prophylaxis. Will relay to AM provider.
[2023-01-16] MEDS: cefTRIAXone SODIUM 2,000 MG in DEXTROSE 5% 50 ML IV SCH (02:30)
[2023-01-16] MEDS: ONDANSETRON INJ 2 MG/ML 2 ML VIAL IV PRN (02:30)
[2023-01-16] MEDS: HYDROCODONE/ACETAMOPHEN 5/325MG TAB PO PRN (02:54)
[2023-01-16] MEDS: LEVOTHYROXINE SODIUM 175 MCG TABLET PO SCH (05:41)
[2023-01-16] MEDS: PANTOprazole 40 MG TAB PO SCH (05:41)
[2023-01-16 06:29] LABS: Hematocrit (blood only) 24.1 % (37.0-47.0); Hemoglobin 7.4 g/dl (12.0-16.0); Mean Corpuscular Hemoglobin 29.5 pg (25.0-34.0); Mean Corpuscular Hgb Conc 30.7 g/dL (32.0-36.0); Mean Platelet Volume 11.1 fL (9.4-12.4); Platelet Count 147 K/uL (130-400); RDW Coefficient of Variation 14.8 % (11.5-14.5); RDW Standard Deviation 51.2 fL (36.4-46.3); Red Blood Count 2.51 M/uL (4.20-5.40); White Blood Count 9.38 K/ul (4.8-10.8)
[2023-01-16 06:56] LABS: Calcium 8.1 mg/dl (8.6-10.3); Potassium 3.6 mmol/L (3.5-5.1)
[2023-01-16 07:07] LABS: BUN Creatinine Ratio 19.9 (10-20); Creatinine Clr Calc Pharmacy 48.4 ml/min; Est GFR (African American) 43.9 ml/min; Est GFR (Non-African American) 37.9 ml/min
[2023-01-16 07:36] LABS: Ferritin 27.3 ng/ml (8-388)
[2023-01-16] MEDS: INSULIN ASPART PER UNIT CHARGE SC SCH ×3 (10:06→17:00)
[2023-01-16] MEDS: LANTUS PER UNIT CHARGE SC SCH (10:07)
[2023-01-16] MEDS: ASCORBIC ACID 500 MG TAB PO SCH (10:15)
[2023-01-16] MEDS: SIMVASTATIN 80 MG TAB PO SCH (10:15)
[2023-01-16] MEDS: allopurinoL 300 MG TAB PO SCH (10:16)
[2023-01-16] MEDS: LOSARTAN POTASSIUM 50 MG TAB PO SCH (10:17)
[2023-01-16] MEDS: FERROUS SULFATE 325 MG TAB PO SCH (10:18)
[2023-01-16] MEDS: VENLAFAXINE HCL XR 150 MG CAPXR PO SCH (10:19)
[2023-01-16] MEDS: CLOTRIMAZOLE 1% CR 15 GM TUBE TOP SCH (10:21)
[2023-01-16] MEDS: NYSTATIN/TRIAMCIN CR 15 GM TUBE EXT SCH (10:22)
[2023-01-16] MEDS: LORazepam 0.5 MG TAB PO PRN (10:33)
[2023-01-16] MEDS: DOCUSATE SODIUM 100 MG CAP PO SCH (10:33)
--- NOTE | 2023-01-16 11:53 | Hospitalist Progress Note ---
Date of Service January 16, 2023 Assessment & Plan Admission and Anticipated Discharge Date Admission Date: January 15, 2023 Results & Data Results & Data Vital Signs (Past 12 Hours) Vital Signs Temp Pulse Resp BP BP Pulse Ox O2 Del Method 01/16/23 11:50 37.1 C 85 12 119/53 L 100 Nasal Cannula 01/16/23 07:50 37.2 C 81 14 94/58 L 100 Nasal Cannula O2 Flow Rate 01/16/23 11:50 2 01/16/23 07:50 2 Laboratory Results Short CBC 01/16/23 Range/Units 06:16 WBC 9.38 (4.8-10.8) K/ul Hgb 7.4 L (12.0-16.0) g/dl Hct 24.1 L (37.0-47.0) % Plt Count 147 (130-400) K/uL BMP 01/16/23 06:16 Sodium 139 Potassium 3.6 D Chloride 98 Carbon Dioxide 35 H BUN 28 H Creatinine 1.41 H Glucose 153 H Calcium 8.1 L Medications Administered Current Inpatient Medications Acetaminophen (Acetaminophen 325 Mg Tab) 650 mg PO Q4H PRN PRN Reason: Pain or Fever Stop: 02/13/23 08:35 Last Admin: 01/14/23 20:48 Dose: 650 mg Hydrocodone Bitart/Acetaminophen (Hydrocodone/Acetamophen 5/325mg Tab) 1 tab PO Q8 PRN PRN Reason: Moderate Pain (Scale Score 5-6) Stop: 01/28/23 08:35 Last Admin: 01/16/23 02:54 Dose: 1 tab Allopurinol (Allopurinol 300 Mg Tab) 300 mg PO QAM [facility] Stop: 02/13/23 08:59 Last Admin: 01/16/23 10:16 Dose: 300 mg Ascorbic Acid (Ascorbic Acid 500 Mg Tab) 500 mg PO QAM [facility] Stop: 02/13/23 08:59 Last Admin: 01/16/23 10:15 Dose: 500 mg Clotrimazole (Clotrimazole 1% Cr 15 Gm Tube) 1 appln TOP BID [facility] Stop: 02/13/23 08:59 Last Admin: 01/16/23 10:21 Dose: 1 appln Dextrose (Dextrose 50% 50 Ml Syringe) 25 - 50 ml IV UD PRN; Protocol PRN Reason: Hypoglycemia Protocol Stop: 02/13/23 08:35 Docusate Sodium (Docusate Sodium 100 Mg Cap) 100 mg PO BID [facility] Stop: 02/13/23 08:59 Last Admin: 01/16/23 10:33 Dose: 100 mg Enoxaparin Sodium (Enoxaparin Inj 40 Mg/0.4 Ml Syr) 40 mg SQ Q12H [facility] Stop: 02/13/23 08:35 Last Admin: 01/15/23 21:10 Dose: Not Given Ferrous Sulfate (Ferrous Sulfate 325 Mg Tab) 325 mg PO AMHS [facility] Stop: 02/13/23 08:59 Last Admin: 01/16/23 10:18 Dose: 325 mg Fluconazole (Fluconazole 50 Mg Tab) 150 mg PO Q2D@1615 [facility] Stop: 01/17/23 16:16 Last Admin: 01/15/23 17:04 Dose: 150 mg Fluticasone Propionate (Fluticasone Propionate Na Spr 16 Gm Btl) 1 sprays NA DAILY PRN PRN Reason: Congestion Stop: 02/13/23 08:35 Glucagon (Glucagon For Inj 1 Mg Vial) 1 mg SQ UD PRN; Protocol PRN Reason: Hypoglycemia Protocol Stop: 02/13/23 08:35 Glucose (Glucose 10 Tab/Tube) 4 - 8 tab PO UD PRN; Protocol PRN Reason: Hypoglycemia Treatment Stop: 02/13/23 08:35 Glucose (Glucose 40% Gel 15 Gm Tube) 15 - 30 gm PO UD PRN; Protocol PRN Reason: Hypoglycemia Protocol Stop: 02/13/23 08:35 Ceftriaxone Sodium 2,000 mg/ (Dextrose) 70 mls @ 100 mls/hr IV Q24H [facility]; Protocol Stop: 01/25/23 02:59 Last Infusion: 01/16/23 03:12 Dose: Infused Insulin Aspart (Insulin Aspart Per Unit Charge) 0 units SC ACHS [facility] Stop: 02/13/23 09:29 Last Admin: 01/16/23 10:06 Dose: 7 units Insulin Glargine (Lantus Per Unit Charge) 15 units SC BID [facility] Stop: 02/13/23 20:59 Last Admin: 01/16/23 10:07 Dose: 15 units Levothyroxine Sodium (Levothyroxine Sodium 175 Mcg Tablet) 175 mcg PO DAILYBB [facility] Stop: 02/14/23 06:29 Last Admin: 01/16/23 05:41 Dose: 175 mcg Lorazepam (Lorazepam 0.5 Mg Tab) 0.5 mg PO TID PRN PRN Reason: Anxiety Stop: 02/13/23 08:35 Last Admin: 01/16/23 10:33 Dose: 0.5 mg Losartan Potassium (Losartan Potassium 50 Mg Tab) 50 mg PO QAM [facility] Stop: 02/13/23 08:59 Last Admin: 01/16/23 10:17 Dose: 50 mg Miscellaneous (Carbohydrates For Hypoglycemia ) 15 - 30 gm PO UD PRN PRN Reason: Hypoglycemia Protocol Stop: 02/13/23 08:35 Miscellaneous Information (Pharmacy Glycemic Mgmt Consult) 1 each N/A UD PRN PRN Reason: Consult Stop: 02/13/23 08:35 Nitroglycerin (Nitroglycerin Sl 0.4 Mg/Tab Tab) 0.4 mg SL UD PRN PRN Reason: Chest Pain Stop: 02/13/23 08:35 Nystatin/Triamcinolone Acetonide (Nystatin/Triamcin Cr 15 Gm Tube) 1 appln EXT BID [facility] Stop: 02/13/23 08:59 Last Admin: 01/16/23 10:22 Dose: 1 appln Ondansetron HCl (Ondansetron Inj 2 Mg/Ml 2 Ml Vial) 4 mg IV Q6H PRN PRN Reason: Nausea Stop: 02/13/23 08:35 Last Admin: 01/16/23 02:30 Dose: 4 mg Pantoprazole Sodium (Pantoprazole 40 Mg Tab) 40 mg PO 0700 [facility] Stop: 02/14/23 06:29 Last Admin: 01/16/23 05:41 Dose: 40 mg Polyethylene Glycol (Polyethylene (Miralax) 17 Gm Pack) 17 gm PO DAILY PRN PRN Reason: Constipation Stop: 02/13/23 08:35 Simvastatin (Simvastatin 80 Mg Tab) 80 mg PO QAM [facility] Stop: 02/13/23 08:59 Last Admin: 01/16/23 10:15 Dose: 80 mg Torsemide (Torsemide 100 Mg Tab) 100 mg PO MoWeFr@0900 [facility] Stop: 02/14/23 08:59 Last Admin: 01/15/23 09:07 Dose: 100 mg Trolamine Salicylate (Trolamine Salicylate 10% Crm 255 Appln/85 Gm Tube) 1 appln EXT BID PRN PRN Reason: left shoulder pain Stop: 02/14/23 15:26 Venlafaxine HCl (Venlafaxine Hcl Xr 150 Mg Capxr) [facility] Stop: 02/13/23 08:59 Last Admin: 01/16/23 10:19 Dose: 150 mg
--- NOTE | 2023-01-16 15:49 | Discharge Summary ---
Discharge Summary Date of Service January 16, 2023 Principal Dx & Hospital Course #1 = Principal Diagnosis (1) Acute hyperglycemia: compliant with insulin at home. UTI possibly contributing. Now at inpatient goal with glycemic pharmacy help. A1C reflects poor overall control. Glucosuria likely contributing to frequent yeast infections. (2) Acute UTI (urinary tract infection): Rocephin pending culture results and clincal improvement. (3) Diabetes mellitus, type 2: A1C is 7.6. She reports starting Trulicity a few months ago and has lost 20 lbs and doing better with DMII management. She also continues on insulin. (4) Anemia: chronic, appears worse today from yesterday. On iron with known h/o anemia. Will review outpatient records regarding workup for this. Iron studies and B12/ folate ordered. No obvious acute blood loss. May be a dilutional component. (5) Yeast infection: Diflucan ordered (6) Chronic obstructive pulmonary disease: chornic, stable. Cont current management. (7) Anxiety: chronic, stable. Lorazepam PRN per home regimen. (8) Hypothyroidism: chronic, stable. Cont levothyroxine per home regimen. (9) On home oxygen therapy: chronic needs, underlying NICCI. CPAP [employer]mi recalled so noncompliant at home without the equipment. She will call supply [employer] and check on this. (10) Sleep apnea: awaiting new CPAP to be delivered at home. Currently on home oxygen. (11) Obesity: Praised for loss of 20 lbs and continue lifestyle modifications. Lovenox Full Code Dispo-to home pending PT/OT recommendations. Amara Gautam DO [facility] Hospitalist Updated Medication List Medication Instructions Recorded Confirmed Type allopurinol 300 mg tablet 300 mg PO QAM 07/24/18 01/14/23 History fluticasone propionate 50 1 spray intranasal DAILY PRN 07/24/18 01/14/23 History mcg/actuation nasal Congestion spray,suspension (Flonase Allergy Relief) insulin human U-100 [id number] See Rx Instructions .Route .COMPLEX 07/24/18 01/14/23 History 70-30 mix 100 unit/mL subcutaneous susp (Humulin 70/30 U-100 Insulin) levothyroxine 175 mcg tablet 175 mcg PO DAILYBB 07/24/18 01/14/23 History lorazepam 0.5 mg tablet 0.5 mg PO TID PRN Anxiety 07/24/18 01/14/23 History torsemide 100 mg tablet 100 mg PO [id number] 07/24/18 01/14/23 History Keto Plus Gummy 2 gummy PO DAILY 01/14/23 01/14/23 History ascorbic acid (vitamin C) 500 mg 500 mg PO QAM 01/14/23 01/14/23 History tablet betamethasone dipropionate 0.05 % 1 applic topical BID 01/14/23 01/14/23 History lotion clotrimazole 1 % topical cream 1 applic topical DAILY 01/14/23 01/14/23 History diphenhydramine HCl 25 mg tablet 25 mg PO BID 01/14/23 01/14/23 History docusate sodium 100 mg capsule 100 mg PO BID 01/14/23 01/14/23 History dulaglutide 0.75 mg/0.5 mL 0.75 mg subcut WK 01/14/23 01/14/23 History subcutaneous pen injector (Trulicity) ferrous sulfate 325 mg (65 mg 325 mg PO AMHS 01/14/23 01/14/23 History iron) tablet hydrocodone 5 mg-acetaminophen 325 1 tab PO Q8 PRN Moderate Pain 01/14/23 01/14/23 History mg tablet (Scale Score 5-6) losartan 50 mg tablet 50 mg PO QAM 01/14/23 01/14/23 History pantoprazole 40 mg tablet,delayed 40 mg PO DAILYBB 01/14/23 01/14/23 History release pioglitazone 30 mg tablet 30 mg PO QAM 01/14/23 01/14/23 History simvastatin 80 mg tablet 80 mg PO QAM 01/14/23 01/14/23 History venlafaxine 150 mg 150 mg PO QAM 01/14/23 01/14/23 History capsule,extended release 24 hr cefdinir 300 mg capsule 300 mg PO BID 5 days #10 caps 01/16/23 Rx fluconazole 50 mg tablet 150 mg PO ONCE #3 tabs 01/16/23 Rx Hospital Stay Data Consultations 01/14/23 03:28 ED Decision to Admit Stat 01/14/23 04:39 ED Decision to Admit Stat Pending Results Patient Have Any Pending Studies at Discharge: No Discharge Instructions Given to Patient (Per Discharging Provider) Please take all medications as instructed on discharge list below. You are being given the remainder of your antibiotic course to complete for urinary tract infection. You are receiving one additional diflucan pill to complete treatment for your yeast infection. As we discussed your hemoglobin and hematocrit is lower than your typical baseline, but appears to be stable around 7.4/24. Please continue with your iron supplementation and have your primary care physician repeat a CBC in one week. If you feel, lightheaded, chest pain, increased shortness of breath, severe fatigue, this may indicate that your anemia is worsening. If you are concerned for developing symptoms or start seeing blood in your bowel movements, please seek immediate medical attention. You did undergo an upper endoscopy in March 2018 where a gastric polyp was removed. I didn't see evidence of your previous colonoscopy in the [facility] system. You may want to consider a referral to see a gastroenterology specialist for repeat endoscopy as needed. Please discuss this further with your PCP on follow-up. It was a pleasure taking care of you! Please call if you have any questions or problems. You can reach a [facility] hospitalist on duty at [facility] 24 hours a day by calling [phone]. Take care of yourself. Amara Gautam, DO [facility]
== END 2023-01-16 17:26 | disposition home or self-care (01) ==
LOC: EDINP 00:28 → ED 00:28 → SUATTDRO 08:01 → 2N 08:34